=== PATIENT | female | born 1940 | race Caucasian/White ===

== ENCOUNTER 2016-05-02 07:29 | Day surgery (SDC) | payer OTHER ==
[2016-05-01 10:47] VITALS: BMI 22.6
[2016-05-02] MEDS ORDERED: LIDOCAINE HCL/PF 1% SDV 5ML VIAL ONE (08:34)
[2016-05-02] MEDS ORDERED: PROPOFOL 20 ML ONE ×3 (08:35)
[2016-05-02 10:22] VITALS: BP 123/82; PULSE 95; TEMP 98
--- NOTE | 2016-05-05 10:23 | PATH ---
Surgical Pathology Report Patient Name: SAURABH CHANG [facility]. Rec. #: [id number] /Age/Gender: 1940 (Age: 76) / F Account: [id number] Location: U-ENDOSCOPY Taken: 05/02/2016 Received: 05/02/2016 Reported: 05/05/2016 Physicians: Apollo Menon M.D. Specimen(s) Received A: BX RECTAL POLYP B: BX RT COLON POLYP C: SIGMOID POLYP Clinical History History of adenoma Diverticulosis, polyps Final Diagnosis A. RECTUM, BIOPSY: HYPERPLASTIC POLYP. B. COLON, RIGHT, BIOPSY: TUBULAR ADENOMA. C. COLON, SIGMOID, BIOPSY: HYPERPLASTIC POLYP. Electronically Signed Jacobo Oakley M.D. Gross Description A. Received in formalin, labeled "biopsy rectal polyp" is a hercules, irregular portion of soft tissue measuring 0.3 cm. in greatest dimension. The specimen is submitted in toto in one cassette. B. Received in formalin, labeled "biopsy right colon polyp" is a hercules, irregular portion of soft tissue measuring 0.2 cm. in greatest dimension. The specimen is submitted in toto in one cassette. C. Received in formalin, labeled "sigmoid polyp" is a hercules, polypoid portion of soft tissue measuring 0.4 cm. in greatest dimension. The specimen is submitted in toto in one cassette. 05/02/201605/02/2016
== END 2016-05-02 10:22 | disposition home or self-care (01) ==
LOC: JASU-ENDO 07:29
PROVIDERS: ATTEND Internal Medicine Gastroenterology
PROC: 0DBK8ZX Excision of Ascending Colon, Via Natural or Artificial Opening Endoscopic, Diagnostic (ICD-10-PCS; 2016-05-02)
PROC: 0DBP8ZX Excision of Rectum, Via Natural or Artificial Opening Endoscopic, Diagnostic (ICD-10-PCS; 2016-05-02)
PROC: 0DBN8ZX Excision of Sigmoid Colon, Via Natural or Artificial Opening Endoscopic, Diagnostic (ICD-10-PCS; principal; 2016-05-02 08:30)
DX: Z86.010 Personal history of colon polyps (principal); D12.2 Benign neoplasm of ascending colon; D12.5 Benign neoplasm of sigmoid colon; K62.1 Rectal polyp; K64.8 Other hemorrhoids
CPT/HCPCS: 88305-TC

== ENCOUNTER 2023-03-31 11:24 | Inpatient (IN) | payer OTHER ==
[2023-03-31] MEDS ORDERED: methylPREDNISolone NA SUCC 125 MG/2 ML VIAL IVPB ONE (12:17)
[2023-03-31] MEDS ORDERED: AZITHROMYCIN IVPB 500 MG in DEXTROSE 5%-WATER - 250 ML IVPB ONE (12:21)
[2023-03-31] MEDS ORDERED: ACETAMINOPHEN 1000 MG/100 ML BAG IVPB ONE (12:30)
[2023-03-31] MEDS: ALBUTEROL SO4 2.5/IPRATROPIUM 0.5 INH SOL 3 ML VIAL.NEB. NEB SCH ×3 (12:32→20:00)
[2023-03-31] MEDS ORDERED: ALBUTEROL SO4 2.5/IPRATROPIUM 0.5 INH SOL 3 ML VIAL.NEB. NEB ONE (12:36)
[2023-03-31] MEDS ORDERED: ACETAMINOPHEN INJECTION 100 ML IVPB ONE (12:36)
[2023-03-31] MEDS ORDERED: methylPREDNISolone NA SUCC 125 MG/2 ML VIAL ONE (12:36)
[2023-03-31] MEDS ORDERED: AZITHROMYCIN IVPB 500 MG/250 ML BAG IVPB ONE (12:37)
[2023-03-31 13:34] LABS: BASO % 0.6 % (0-2.0); EOS % 0.1 % (0-4.5); HEMATOCRIT 41.6 % (32.4-45.2); HEMOGLOBIN 13.5 GM/dL (10.7-15.3); LYMPH % 6.1 % (8-40); MCH 31.1 pg (25.7-33.7); MCHC 32.5 g/dl (32.0-36.0); MEAN CELL VOLUME 95.8 fl (80-96); MONO % 10.1 % (3.8-10.2); NEUT % 83.1 % (42.8-82.8); PLATELET COUNT 353 10^3/uL (134-434); RBC 4.34 M/mm3 (3.60-5.2); WHITE BLOOD COUNT 16.8 K/mm3 (4.0-10.0)
[2023-03-31 13:45] LABS: VENOUS O2 SATURATION 83.1 % (70-80); VENOUS PCO2 46.9 mmHg (38-52); VENOUS PH 7.389 (7.310-7.410)
[2023-03-31 13:49] LABS: POTASSIUM 4.4 mmol/L (3.5-5.1)
[2023-03-31 13:52] LABS: ALBUMIN 2.8 g/dl (3.4-5.0); BLOOD UREA NITROGEN 15.1 mg/dL (7-18); CALCIUM 9.2 mg/dL (8.5-10.1)
[2023-03-31 13:57] LABS: BILIRUBIN,TOTAL 0.4 mg/dL (0.2-1); CREATININE 0.5 mg/dL (0.55-1.3); TOT PROT 6.3 g/dl (6.4-8.2)
[2023-03-31] MEDS ORDERED: CEFTRIAXONE 1 GM/50 ML BAG ONE (15:04)
[2023-03-31] MEDS: methylPREDNISolone NA SUCC 40 MG/1 ML VIAL IVPB SCH (16:12)
[2023-03-31] MEDS: FLUTICASONE/UMECLIDIN/VILANTER(200-62.5-25 TRELEGY ELLIPTA) INAHLER IH SCH (16:33)
[2023-03-31] MEDS: ATORVASTATIN CA 40 MG TABLET (FP) PO SCH (21:59)
[2023-04-01] MEDS: methylPREDNISolone NA SUCC 40 MG/1 ML VIAL IVPB SCH ×2 (01:00→09:24)
[2023-04-01] MEDS ORDERED: levoFLOXacin 750 MG TABLET PO SCH (06:00)
[2023-04-01] MEDS: ALBUTEROL SO4 2.5/IPRATROPIUM 0.5 INH SOL 3 ML VIAL.NEB. NEB SCH ×4 (07:40→20:19)
[2023-04-01] MEDS: ENOXAPARIN NA (PORCINE) 40 MG/0.4 ML DISP.SYRIN SQ SCH (09:24)
[2023-04-01] MEDS: LOSARTAN POTASSIUM 50 MG TABLET PO SCH (09:25)
[2023-04-01] MEDS: CHOLECALCIFEROL (VIT D3) 1,000 UNIT (25 MCG) TABLET PO SCH (09:25)
[2023-04-01] MEDS: NIFEdipine E.R. 30 MG TABLET PO SCH (09:25)
[2023-04-01] MEDS: metoPROLOL SUCCINATE 25 MG TAB.SR.24H (FP) PO SCH (09:25)
[2023-04-01] MEDS: PANTOPRAZOLE 40 MG TABLET PO SCH (09:25)
[2023-04-01] MEDS: ASPIRIN 81 MG CHEWABLE TABLETS PO SCH (09:25)
[2023-04-01] MEDS ORDERED: PATIENT'S OWN MEDICATION (NON-FORMULARY) (Olmesartan Medoxomil 40 MG Tablet) PO SCH (10:00)
[2023-04-01] MEDS ORDERED: PATIENT'S OWN MEDICATION (NON-FORMULARY) (Vit C/E/Zn/Coppr/Lutein/Zeaxan [Preservision Are PO SCH (10:00)
[2023-04-01] MEDS ORDERED: AZITHROMYCIN IVPB 250 MG in DEXTROSE 5%-WATER - 250 ML IVPB SCH (10:00)
[2023-04-01 10:39] LABS: HEMATOCRIT 39.2 % (32.4-45.2); HEMOGLOBIN 13.2 GM/dL (10.7-15.3); MCH 31.8 pg (25.7-33.7); MCHC 33.7 g/dl (32.0-36.0); MEAN CELL VOLUME 94.4 fl (80-96); MEAN PLT VOLUME 8.9 fl (7.5-11.1); PLATELET COUNT 373 10^3/uL (134-434); RBC 4.15 M/mm3 (3.60-5.2); RDW 13.6 % (11.6-15.6); WHITE BLOOD COUNT 15.6 K/mm3 (4.0-10.0)
[2023-04-01 11:01] LABS: POTASSIUM 4.2 mmol/L (3.5-5.1)
[2023-04-01 11:08] LABS: CALCIUM 10.1 mg/dL (8.5-10.1)
[2023-04-01 11:09] LABS: ALBUMIN 2.6 g/dl (3.4-5.0); BLOOD UREA NITROGEN 19.2 mg/dL (7-18); MAGNESIUM 1.8 mg/dL (1.8-2.4)
[2023-04-01 11:11] LABS: CREATININE 0.8 mg/dL (0.55-1.3); PHOSPHOROUS 3.1 mg/dL (2.5-4.9)
[2023-04-01 11:13] LABS: BILIRUBIN,TOTAL 0.3 mg/dL (0.2-1)
[2023-04-01 11:44] LABS: ANISOCYTOSIS 0; MACROCYTOSIS 0
[2023-04-01] MEDS: FLUTICASONE/UMECLIDIN/VILANTER(200-62.5-25 TRELEGY ELLIPTA) INAHLER IH SCH (12:15)
[2023-04-01] MEDS: CYANOCOBALAMIN 1,000 MCG TABLET (FP) PO SCH (12:25)
[2023-04-01] MEDS: ATORVASTATIN CA 40 MG TABLET (FP) PO SCH (22:07)
[2023-04-02] MEDS: ALBUTEROL SO4 2.5/IPRATROPIUM 0.5 INH SOL 3 ML VIAL.NEB. NEB SCH ×4 (08:15→20:11)
[2023-04-02] MEDS ORDERED: AZITHROMYCIN IVPB 500 MG/250 ML BAG IVPB ONE (10:00)
[2023-04-02 10:08] LABS: BASO % 0.4 % (0-2.0); EOS % 0.1 % (0-4.5); HEMATOCRIT 38.9 % (32.4-45.2); HEMOGLOBIN 12.7 GM/dL (10.7-15.3); LYMPH % 8.5 % (8-40); MCH 31.7 pg (25.7-33.7); MCHC 32.8 g/dl (32.0-36.0); MEAN CELL VOLUME 96.6 fl (80-96); MONO % 9.4 % (3.8-10.2); NEUT % 81.6 % (42.8-82.8); PLATELET COUNT 387 10^3/uL (134-434); RBC 4.02 M/mm3 (3.60-5.2); RDW 13.6 % (11.6-15.6); WHITE BLOOD COUNT 17.7 K/mm3 (4.0-10.0)
[2023-04-02] MEDS: NIFEdipine E.R. 30 MG TABLET PO SCH (10:11)
[2023-04-02] MEDS: ENOXAPARIN NA (PORCINE) 40 MG/0.4 ML DISP.SYRIN SQ SCH (10:11)
[2023-04-02] MEDS: metoPROLOL SUCCINATE 25 MG TAB.SR.24H (FP) PO SCH (10:11)
[2023-04-02] MEDS: PANTOPRAZOLE 40 MG TABLET PO SCH (10:13)
[2023-04-02] MEDS: LOSARTAN POTASSIUM 50 MG TABLET PO SCH (10:13)
[2023-04-02] MEDS: predniSONE 20 MG TABLET (UD) PO SCH (10:13)
[2023-04-02] MEDS: ASPIRIN 81 MG CHEWABLE TABLETS PO SCH (10:13)
[2023-04-02] MEDS: CEFTRIAXONE 1 GM in DEXTROSE 5%-WATER - 50 ML IVPB SCH (10:14)
[2023-04-02] MEDS: CYANOCOBALAMIN 1,000 MCG TABLET (FP) PO SCH (10:15)
[2023-04-02] MEDS: FLUTICASONE/UMECLIDIN/VILANTER(200-62.5-25 TRELEGY ELLIPTA) INAHLER IH SCH (10:17)
[2023-04-02] MEDS: CHOLECALCIFEROL (VIT D3) 1,000 UNIT (25 MCG) TABLET PO SCH (10:17)
[2023-04-02 10:24] LABS: POTASSIUM 4.4 mmol/L (3.5-5.1)
[2023-04-02 10:36] LABS: BLOOD UREA NITROGEN 24.9 mg/dL (7-18)
[2023-04-02 10:37] LABS: CALCIUM 9.4 mg/dL (8.5-10.1)
[2023-04-02 10:38] LABS: ALBUMIN 2.4 g/dl (3.4-5.0)
[2023-04-02 10:39] LABS: CREATININE 0.7 mg/dL (0.55-1.3)
[2023-04-02 10:40] LABS: BILIRUBIN,TOTAL 0.2 mg/dL (0.2-1); TOT PROT 5.6 g/dl (6.4-8.2)
[2023-04-02] MEDS: ATORVASTATIN CA 40 MG TABLET (FP) PO SCH (22:00)
[2023-04-03 04:57] VITALS: RESP 18
[2023-04-03] MEDS: ALBUTEROL SO4 2.5/IPRATROPIUM 0.5 INH SOL 3 ML VIAL.NEB. NEB SCH (07:15)
[2023-04-03 08:44] LABS: BASO % 0.3 % (0-2.0); EOS % 0.5 % (0-4.5); HEMOGLOBIN 12.9 GM/dL (10.7-15.3); LYMPH % 15.7 % (8-40); MCH 31.8 pg (25.7-33.7); MCHC 33.1 g/dl (32.0-36.0); MEAN CELL VOLUME 96.2 fl (80-96); MEAN PLT VOLUME 8.6 fl (7.5-11.1); MONO % 9.8 % (3.8-10.2); NEUT % 73.7 % (42.8-82.8); PLATELET COUNT 404 10^3/uL (134-434); RBC 4.06 M/mm3 (3.60-5.2); RDW 13.1 % (11.6-15.6); WHITE BLOOD COUNT 14.1 K/mm3 (4.0-10.0)
[2023-04-03 09:00] LABS: POTASSIUM 4.7 mmol/L (3.5-5.1)
[2023-04-03 09:02] LABS: CALCIUM 9.5 mg/dL (8.5-10.1)
[2023-04-03 09:03] LABS: ALBUMIN 2.5 g/dl (3.4-5.0); BLOOD UREA NITROGEN 24.3 mg/dL (7-18)
[2023-04-03 09:06] LABS: CREATININE 0.5 mg/dL (0.55-1.3)
[2023-04-03 09:07] LABS: TOT PROT 5.6 g/dl (6.4-8.2)
[2023-04-03 09:08] LABS: BILIRUBIN,TOTAL 0.3 mg/dL (0.2-1)
[2023-04-03 09:43] VITALS: BP 111/74; PULSE 114; TEMP 97.7
[2023-04-03] MEDS ORDERED: MULTIVITAMINS THER W-MINERALS COMBO TABLET (FP) PO SCH (10:00)
[2023-04-03] MEDS: LOSARTAN POTASSIUM 50 MG TABLET PO SCH (10:18)
[2023-04-03] MEDS: predniSONE 20 MG TABLET (UD) PO SCH (10:18)
[2023-04-03] MEDS: ASPIRIN 81 MG CHEWABLE TABLETS PO SCH (10:18)
[2023-04-03] MEDS: PANTOPRAZOLE 40 MG TABLET PO SCH (10:19)
[2023-04-03] MEDS: metoPROLOL SUCCINATE 25 MG TAB.SR.24H (FP) PO SCH (10:19)
[2023-04-03] MEDS: CHOLECALCIFEROL (VIT D3) 1,000 UNIT (25 MCG) TABLET PO SCH (10:19)
[2023-04-03] MEDS: NIFEdipine E.R. 30 MG TABLET PO SCH (10:20)
[2023-04-03] MEDS: CEFTRIAXONE 1 GM in DEXTROSE 5%-WATER - 50 ML IVPB SCH (10:20)
[2023-04-03] MEDS: CYANOCOBALAMIN 1,000 MCG TABLET (FP) PO SCH (10:20)
[2023-04-03] MEDS: ENOXAPARIN NA (PORCINE) 40 MG/0.4 ML DISP.SYRIN SQ SCH (10:20)
[2023-04-03] MEDS: FLUTICASONE/UMECLIDIN/VILANTER(200-62.5-25 TRELEGY ELLIPTA) INAHLER IH SCH (10:21)
[2023-04-03 23:22] VITALS: BMI 18.5
== END 2023-04-03 11:25 | disposition home or self-care (01) | DRG 190 ==
LOC: JER 11:24 → JERBED 15:27 → J6S 17:35
PROVIDERS: ADMIT Internal Medicine; ATTEND Internal Medicine
DX: J44.1 Chronic obstructive pulmonary disease with (acute) exacerbation (principal); E43 Unspecified severe protein-calorie malnutrition; Z68.1 Body mass index [BMI] 19.9 or less, adult; D12.6 Benign neoplasm of colon, unspecified; K57.90 Diverticulosis of intestine, part unspecified, without perforation or abscess without bleeding; J06.9 Acute upper respiratory infection, unspecified; H35.30 Unspecified macular degeneration; R94.5 Abnormal results of liver function studies; I10 Essential (primary) hypertension; E78.5 Hyperlipidemia, unspecified; R50.9 Fever, unspecified; R00.0 Tachycardia, unspecified
CPT/HCPCS: 0241U-QW; 36415; 71045-TC-FY; 80053; 82803; 83735; 84100; 85025; 87040; 87070; 87205; 93005; 93010; 94640; 94761; 99291

== ENCOUNTER 2023-08-17 00:18 | Inpatient (IN) | payer OTHER ==
[2023-08-17] MEDS: ALBUTEROL SO4 0.083% IH SOL 2.5 MG/3 ML VIAL.NEB. NEB ONE (01:01)
[2023-08-17] MEDS: ALBUTEROL SO4 2.5/IPRATROPIUM 0.5 INH SOL 3 ML VIAL.NEB. NEB SCH ×2 (01:01→07:55)
[2023-08-17] MEDS ORDERED: methylPREDNISolone NA SUCC 125 MG/2 ML VIAL ONE (01:03)
[2023-08-17 01:04] LABS: VENOUS BASE EXCESS 0.8 mmol/L (-2-2); VENOUS O2 SATURATION 70.4 % (70-80); VENOUS PCO2 45.5 mmHg (38-52); VENOUS PH 7.382 (7.310-7.410)
[2023-08-17] MEDS: methylPREDNISolone NA SUCC 125 MG/2 ML VIAL IVPB ONE (01:10)
[2023-08-17 01:24] LABS: BASO % 0.8 % (0-2.0); EOS % 0.7 % (0-4.5); HEMATOCRIT 45.6 % (32.4-45.2); HEMOGLOBIN 15.4 GM/dL (10.7-15.3); LYMPH % 12.9 % (8-40); MCH 31.9 pg (25.7-33.7); MCHC 33.7 g/dl (32.0-36.0); MEAN CELL VOLUME 94.8 fl (80-96); MEAN PLT VOLUME 9.2 fl (7.5-11.1); MONO % 8.5 % (3.8-10.2); NEUT % 77.1 % (42.8-82.8); PLATELET COUNT 332 10^3/uL (134-434); RBC 4.81 M/mm3 (3.60-5.2); RDW 13.3 % (11.6-15.6); WHITE BLOOD COUNT 14.2 K/mm3 (4.0-10.0)
[2023-08-17 01:29] LABS: POTASSIUM 4.3 mmol/L (3.5-5.1)
[2023-08-17 01:31] LABS: ALBUMIN 3.4 g/dl (3.4-5.0); BLOOD UREA NITROGEN 12.6 mg/dL (7-18); CALCIUM 9.8 mg/dL (8.5-10.1)
[2023-08-17 01:34] LABS: CREATININE 0.8 mg/dL (0.55-1.3)
[2023-08-17 01:36] LABS: BILIRUBIN,TOTAL 0.4 mg/dL (0.2-1); TOT PROT 6.6 g/dl (6.4-8.2)
[2023-08-17] MEDS ORDERED: CEFTRIAXONE 1 GM/50 ML BAG ONE (02:23)
[2023-08-17 05:47] VITALS: RESP 20
[2023-08-17 09:00] LABS: HEMATOCRIT 42.1 % (32.4-45.2); HEMOGLOBIN 14.6 GM/dL (10.7-15.3); MCH 32.6 pg (25.7-33.7); MCHC 34.7 g/dl (32.0-36.0); MEAN PLT VOLUME 9.2 fl (7.5-11.1); PLATELET COUNT 335 10^3/uL (134-434); RBC 4.48 M/mm3 (3.60-5.2); RDW 13.6 % (11.6-15.6)
[2023-08-17 09:23] LABS: ALBUMIN 3.2 g/dl (3.4-5.0); BLOOD UREA NITROGEN 15.4 mg/dL (7-18); CALCIUM 9.7 mg/dL (8.5-10.1)
[2023-08-17 09:26] LABS: CREATININE 0.9 mg/dL (0.55-1.3); MAGNESIUM 2.1 mg/dL (1.8-2.4); PHOSPHOROUS 3.6 mg/dL (2.5-4.9)
[2023-08-17 09:28] LABS: BILIRUBIN,TOTAL 0.5 mg/dL (0.2-1); TOT PROT 6.4 g/dl (6.4-8.2)
[2023-08-17] MEDS: methylPREDNISolone NA SUCC 40 MG/1 ML VIAL IVPUSH SCH ×2 (09:36→17:38)
[2023-08-17] MEDS: NICOTINE 14 MG/24 HOURS TOPICAL PATCH TD SCH (09:36)
[2023-08-17] MEDS: ENOXAPARIN NA (PORCINE) 40 MG/0.4 ML DISP.SYRIN SQ SCH (09:36)
[2023-08-17] MEDS: AZITHROMYCIN IVPB 500 MG/250 ML BAG IVPB SCH (09:37)
[2023-08-17] MEDS: BUDESONIDE/FORMETEROL FUMARATE 160/4.5 mcg INHALER IH SCH (09:48)
[2023-08-17 10:13] LABS: ANISOCYTOSIS 0; MACROCYTOSIS 0
[2023-08-17] MEDS: ATORVASTATIN CA 40 MG TABLET (FP) PO SCH (21:59)
[2023-08-17] MEDS: metoPROLOL SUCCINATE 25 MG TAB.SR.24H (FP) PO ONE (22:17)
[2023-08-18 06:16] VITALS: BP 140/74; PULSE 112; TEMP 98.2
[2023-08-18 08:50] LABS: HEMATOCRIT 41.3 % (32.4-45.2); HEMOGLOBIN 13.9 GM/dL (10.7-15.3); MCH 31.6 pg (25.7-33.7); MCHC 33.6 g/dl (32.0-36.0); MEAN CELL VOLUME 93.9 fl (80-96); MEAN PLT VOLUME 9.1 fl (7.5-11.1); PLATELET COUNT 329 10^3/uL (134-434); RDW 13.8 % (11.6-15.6); WHITE BLOOD COUNT 20.7 K/mm3 (4.0-10.0)
[2023-08-18 08:55] LABS: CALCIUM 9.4 mg/dL (8.5-10.1)
[2023-08-18 08:56] LABS: ALBUMIN 2.9 g/dl (3.4-5.0); BLOOD UREA NITROGEN 15.5 mg/dL (7-18); MAGNESIUM 2.2 mg/dL (1.8-2.4)
[2023-08-18 08:59] LABS: CREATININE 0.6 mg/dL (0.55-1.3)
[2023-08-18 09:00] LABS: TOT PROT 5.8 g/dl (6.4-8.2)
[2023-08-18 09:01] LABS: BILIRUBIN,TOTAL 0.3 mg/dL (0.2-1)
[2023-08-18 09:41] LABS: PLATELET ESTIMATE ADEQUATE
[2023-08-18] MEDS: ASPIRIN 81 MG CHEWABLE TABLETS PO SCH (09:49)
[2023-08-18] MEDS: NIFEdipine E.R. 30 MG TABLET PO SCH (09:49)
[2023-08-18] MEDS: metoPROLOL SUCCINATE 25 MG TAB.SR.24H (FP) PO SCH (09:49)
[2023-08-18] MEDS: methylPREDNISolone NA SUCC 40 MG/1 ML VIAL IVPUSH SCH (09:50)
[2023-08-18] MEDS: FLUTICASONE/UMECLIDIN/VILANTER(200-62.5-25 TRELEGY ELLIPTA) INAHLER IH SCH (09:52)
[2023-08-18 10:29] VITALS: BMI 18.5
[2023-08-18] MEDS ORDERED: AZITHROMYCIN 250 MG TABLET PO SCH (10:31)
[2023-08-19] MEDS ORDERED: AZITHROMYCIN 250 MG TABLET PO SCH (10:00)
== END 2023-08-18 13:07 | disposition home health service (06) | DRG 191 ==
LOC: JER 00:18 → JERBED 03:04 → J8W 04:52
PROVIDERS: ADMIT Internal Medicine; ATTEND Nurse Practitioner Acute Care
DX: J44.1 Chronic obstructive pulmonary disease with (acute) exacerbation (principal); E44.0 Moderate protein-calorie malnutrition; Z68.1 Body mass index [BMI] 19.9 or less, adult; I10 Essential (primary) hypertension; E78.5 Hyperlipidemia, unspecified; F17.210 Nicotine dependence, cigarettes, uncomplicated; H35.30 Unspecified macular degeneration; I73.9 Peripheral vascular disease, unspecified; R00.0 Tachycardia, unspecified; Z99.81 Dependence on supplemental oxygen
CPT/HCPCS: 0241U-QW; 36415; 71045-TC-FY; 80053; 82803; 82962; 83735; 84100; 84484; 85025; 93005; 93010; 94640; 94761; 99285-25

== ENCOUNTER 2024-11-06 18:53 | Inpatient (IN) | payer OTHER ==
[2024-11-06] MEDS ORDERED: ALBUTEROL SO4 2.5/IPRATROPIUM 0.5 INH SOL 3 ML VIAL.NEB. NEB ONE (20:00)
[2024-11-06 20:05] VITALS: BMI 34.4
[2024-11-06] MEDS: ALBUTEROL SO4 2.5/IPRATROPIUM 0.5 INH SOL 3 ML VIAL.NEB. NEB SCH ×2 (20:08→21:59)
[2024-11-06 21:10] LABS: ABSOLUTE IMMATURE GRANULOCYTES 0.02 x10^3/uL (0.0-0.031); BASOPHILS # 0.05 x10^3/uL (0.01-0.08); EOSINOPHIL % 1.3 % (0.7-5.8); EOSINOPHILS # 0.12 x10^3/uL (0.04-0.36); MCHC 30.5 g/dl (32.2-35.5); MEAN CELL VOLUME 101.4 fl (79.4-94.8); MEAN PLT VOLUME 9.8 fl (9.4-12.3); MONOCYTE # 0.84 x10^3/uL (0.24-0.86); MONOCYTE % 8.8 % (4.7-12.5); RDW 13.0 % (12.5-17.0)
[2024-11-06] MEDS ORDERED: CEFTRIAXONE 1 GM/50 ML BAG ONE (21:33)
[2024-11-06] MEDS ORDERED: methylPREDNISolone NA SUCC 125 MG/2 ML VIAL ONE (21:33)
[2024-11-06] MEDS ORDERED: AZITHROMYCIN IVPB 500 MG/250 ML BAG IVPB ONE (21:34)
[2024-11-06 21:42] LABS: CO2 41.0 mmol/L (21-32); GLUCOSE,RANDOM 106.0 mg/dL (74-106)
[2024-11-06 21:44] LABS: CREATININE 0.4 mg/dL (0.55-1.3); SGOT/AST 34.0 U/L (15-37); SGPT/ALT 35.0 U/L (13-61)
[2024-11-06] MEDS: methylPREDNISolone NA SUCC 125 MG/2 ML VIAL IVPUSH ONE (21:45)
[2024-11-06 21:47] LABS: ALK PHOS 82.0 U/L (45-117); TOT PROT 6.4 g/dl (6.4-8.2)
[2024-11-06 21:50] LABS: N-TERMINAL BNP 497.8 pg/ml (5-450)
[2024-11-06] MEDS: AZITHROMYCIN IVPB 500 MG in DEXTROSE 5%-WATER - 250 ML IVPB ONE (21:58)
[2024-11-06 22:50] LABS: HCV DIAGNOSTIC IN-HOUSE W/RFLX NON-REACTIVE (NONREACTIVE); HIV INTERPRETATION NEGATIVE (NEGATIVE)
[2024-11-06] MEDS ORDERED: methylPREDNISolone NA SUCC 40 MG/1 ML VIAL IVPUSH SCH (23:45)
[2024-11-07] MEDS ORDERED: MAGNESIUM SULFATE IN WATER 2 GM/50 ML IVPB IVPB ONE (01:03)
[2024-11-07] MEDS ORDERED: FUROSEMIDE 40 MG/4 ML INJECTABLE VIAL ONE (01:03)
[2024-11-07] MEDS: MAGNESIUM SULF 50% (8.12 MEQ/2 ML-1 GM VIAL) IVPB ONE (01:09)
[2024-11-07] MEDS: FUROSEMIDE 40 MG/4 ML INJECTABLE VIAL IVPUSH ONE (01:10)
[2024-11-07 01:48] LABS: EPI CELLS 5 /uL (0-25.1); HYALINE CASTS 0 /uL (0-3.1); URINE APPEARANCE TURBID; URINE BACTERIA 104 /uL (0-1359); URINE BILIRUBIN NEGATIVE (NEGATIVE); URINE COLOR YELLOW; URINE GLUCOSE (UA) 2+ (NEGATIVE); URINE KETONE NEGATIVE (NEGATIVE); URINE LEUK ESTERASE 2+ (NEGATIVE); URINE NITRITE NEGATIVE (NEGATIVE); URINE PROTEIN NEGATIVE (NEGATIVE); URINE RBC 8 /uL (0-23.9); URINE UROBILINOGEN 0.2 mg/dL (0.2-1.0); URINE WBC 43 /uL (0-25.8)
[2024-11-07] MEDS: MELATONIN 5 MG TABLETS PO ONE (03:15)
[2024-11-07] MEDS: methylPREDNISolone NA SUCC 40 MG/1 ML VIAL IVPUSH SCH (03:15)
[2024-11-07 07:04] LABS: MCHC 30.3 g/dl (32.2-35.5); MEAN CELL VOLUME 100.3 fl (79.4-94.8); MEAN PLT VOLUME 10.9 fl (9.4-12.3); RDW 13.1 % (12.5-17.0)
[2024-11-07] MEDS: ALBUTEROL SO4 2.5/IPRATROPIUM 0.5 INH SOL 3 ML VIAL.NEB. NEB SCH (07:34)
[2024-11-07 07:39] LABS: CO2 41.0 mmol/L (21-32); GLUCOSE,RANDOM 190.0 mg/dL (74-106)
[2024-11-07 07:42] LABS: CREATININE 0.5 mg/dL (0.55-1.3); SGOT/AST 25.0 U/L (15-37); SGPT/ALT 29.0 U/L (13-61)
[2024-11-07 07:43] LABS: TOT PROT 5.6 g/dl (6.4-8.2)
[2024-11-07 07:44] LABS: ALK PHOS 74.0 U/L (45-117)
[2024-11-07] MEDS: AZITHROMYCIN 250 MG TABLET PO SCH (10:21)
[2024-11-07] MEDS: ENOXAPARIN NA (PORCINE) 40 MG/0.4 ML DISP.SYRIN SQ SCH (10:21)
[2024-11-07] MEDS: NIFEdipine E.R. 30 MG TABLET PO SCH (10:21)
[2024-11-07] MEDS: ASPIRIN 81 MG CHEWABLE TABLETS PO SCH (10:21)
[2024-11-07] MEDS: FLUTICASONE/UMECLIDIN/VILANTER(200-62.5-25 TRELEGY ELLIPTA) INAHLER IH SCH (12:35)
[2024-11-07] MEDS: ACETAMINOPHEN 325 MG TABLET (FP) PO PRN (17:01)
[2024-11-07] MEDS: ATORVASTATIN CA 40 MG TABLET (FP) PO SCH (21:42)
[2024-11-07] MEDS: MELATONIN 5 MG TABLETS PO PRN (21:42)
[2024-11-07] MEDS: LEVALBUTEROL HCL 0.63 MG/3 ML VIAL.NEB. IH PRN (21:50)
[2024-11-08 07:36] LABS: MCHC 31.2 g/dl (32.2-35.5); MEAN CELL VOLUME 99.4 fl (79.4-94.8); MEAN PLT VOLUME 10.8 fl (9.4-12.3); RDW 13.2 % (12.5-17.0)
[2024-11-08 10:31] LABS: GLUCOSE,RANDOM 154.0 mg/dL (74-106); TOT PROT 5.7 g/dl (6.4-8.2)
[2024-11-08 10:32] LABS: CO2 37.0 mmol/L (21-32)
[2024-11-08 10:34] LABS: ALK PHOS 71.0 U/L (40-150)
[2024-11-08 10:37] LABS: CREATININE 0.48 mg/dL (0.55-1.3); SGOT/AST 30.0 U/L (5-34); SGPT/ALT 26.0 U/L (0-55)
[2024-11-08] MEDS: UMECLIDINIUM/VILANTEROL (ANORO) 62.5/25 MCG INHALER IH SCH (20:27)
[2024-11-08] MEDS: methylPREDNISolone NA SUCC 40 MG/1 ML VIAL IVPUSH SCH (21:18)
[2024-11-09 08:43] LABS: MCHC 30.4 g/dl (32.2-35.5); MEAN CELL VOLUME 102.1 fl (79.4-94.8); MEAN PLT VOLUME 11.0 fl (9.4-12.3); RDW 13.2 % (12.5-17.0)
[2024-11-09 10:13] LABS: GLUCOSE,RANDOM 180.0 mg/dL (74-106)
[2024-11-09 10:14] LABS: TOT PROT 6.3 g/dl (6.4-8.2)
[2024-11-09 10:15] LABS: CO2 35.0 mmol/L (21-32)
[2024-11-09 10:16] LABS: ALK PHOS 78.0 U/L (40-150)
[2024-11-09 10:19] LABS: CREATININE 0.43 mg/dL (0.55-1.3); SGOT/AST 48.0 U/L (5-34); SGPT/ALT 51.0 U/L (0-55)
[2024-11-10 08:49] LABS: MCHC 31.4 g/dl (32.2-35.5); MEAN CELL VOLUME 99.2 fl (79.4-94.8); MEAN PLT VOLUME 10.4 fl (9.4-12.3); RDW 13.2 % (12.5-17.0)
[2024-11-10] MEDS: SODIUM CHLORIDE 1,000 ML IV SCH (09:08)
[2024-11-10 09:46] LABS: GLUCOSE,RANDOM 199.0 mg/dL (74-106)
[2024-11-10 09:47] LABS: CO2 37.0 mmol/L (21-32); TOT PROT 5.6 g/dl (6.4-8.2)
[2024-11-10 09:49] LABS: ALK PHOS 70.0 U/L (40-150)
[2024-11-10 09:52] LABS: CREATININE 0.51 mg/dL (0.55-1.3); SGOT/AST 42.0 U/L (5-34); SGPT/ALT 64.0 U/L (0-55)
[2024-11-10 11:21] VITALS: RESP 21
[2024-11-10 14:17] VITALS: BP 106/88; PULSE 114; TEMP 98.8
== END 2024-11-10 17:36 | disposition home health service (06) | DRG 191 ==
LOC: JER 18:53 → JERBED 23:05 → J6W TELE 11-07 02:42
PROVIDERS: ADMIT Hospitalist; ATTEND Internal Medicine
DX: J44.1 Chronic obstructive pulmonary disease with (acute) exacerbation (principal); E46 Unspecified protein-calorie malnutrition; I24.89 Other forms of acute ischemic heart disease; J96.11 Chronic respiratory failure with hypoxia; R91.8 Other nonspecific abnormal finding of lung field; I10 Essential (primary) hypertension; F17.210 Nicotine dependence, cigarettes, uncomplicated; E78.5 Hyperlipidemia, unspecified; Z68.34 Body mass index [BMI] 34.0-34.9, adult; Z99.81 Dependence on supplemental oxygen
CPT/HCPCS: 36415; 70491-TC; 71045-TC-FY; 71250-TC; 71260-TC; 74177-TC; 80053; 81003; 83735; 83880; 84100; 84484; 85025; 85027; 86803; 87389; 87637-QW; 93005; 93010; 93306-TC; 94640; 97116-GP; 97162-GP; 99285-25

== ENCOUNTER 2025-01-11 00:35 | Inpatient (IN) | payer OTHER ==
[2025-01-11 01:35] LABS: MCHC 30.9 g/dl (32.2-35.5); MEAN CELL VOLUME 98.9 fl (79.4-94.8); MEAN PLT VOLUME 9.8 fl (9.4-12.3); RDW 14.6 % (12.5-17.0)
[2025-01-11 01:37] LABS: BG HCT 34.0 % (32.4-45.2); VENOUS BASE EXCESS 5.7 mmol/L (-2-2); VENOUS O2 SATURATION 16.9 % (70-80); VENOUS PCO2 62.6 mmHg (38-52); VENOUS PH 7.340 (7.310-7.410)
[2025-01-11] MEDS ORDERED: MAGNESIUM SULFATE IN WATER 2 GM/50 ML IVPB IVPB ONE (01:41)
[2025-01-11] MEDS ORDERED: methylPREDNISolone NA SUCC 125 MG/2 ML VIAL ONE (01:41)
[2025-01-11] MEDS ORDERED: FUROSEMIDE 40 MG/4 ML INJECTABLE VIAL ONE (01:41)
[2025-01-11] MEDS ORDERED: dilTIAZem HCL 125 MG/25 ML - 25 ML VIAL ONE (01:41)
[2025-01-11 01:43] LABS: INR 1.05 (0.83-1.09); PROTHROMBIN TIME (PATIENT) 11.6 SEC (9.7-13.0)
[2025-01-11 01:46] LABS: ACTIVATED PTT 23.8 SECONDS (25.2-36.5)
[2025-01-11 01:57] LABS: GLUCOSE,RANDOM 145.0 mg/dL (74-106); TOT PROT 5.9 g/dl (6.4-8.2)
[2025-01-11 01:58] LABS: CO2 30.0 mmol/L (21-32)
[2025-01-11] MEDS: MAGNESIUM SULF 50% (8.12 MEQ/2 ML-1 GM VIAL) IVPB ONE (01:59)
[2025-01-11] MEDS: FUROSEMIDE 40 MG/4 ML INJECTABLE VIAL IVPUSH ONE (01:59)
[2025-01-11] MEDS: methylPREDNISolone NA SUCC 125 MG/2 ML VIAL IVPB ONE (01:59)
[2025-01-11] MEDS: dilTIAZem HCL 50 MG/10 ML - 10 ML VIAL IVPUSH ONE ×2 (02:00→03:28)
[2025-01-11 02:02] LABS: SGOT/AST 46.0 U/L (5-34); SGPT/ALT 65.0 U/L (0-55)
[2025-01-11 02:03] LABS: CREATININE 0.52 mg/dL (0.55-1.3)
[2025-01-11 02:29] LABS: ALK PHOS 117.0 U/L (40-150)
[2025-01-11] MEDS ORDERED: PIPERACILLIN/TAZOB 3.375 GM 3.375 GM/50 ML BAG IVPB ONE (02:43)
[2025-01-11] MEDS ORDERED: AZITHROMYCIN IVPB 500 MG/250 ML BAG IVPB ONE (02:43)
[2025-01-11] MEDS: VANCOMYCIN 1,000 MG in DEXTROSE 5%-WATER - 250 ML IVPB ONE (03:00)
[2025-01-11] MEDS: PIPERACILLIN/TAZOB 3.375 GM 3.375 GM in DEXTROSE 5%-WATER - 50 ML IVPB ONE (03:01)
[2025-01-11] MEDS: AZITHROMYCIN IVPB 500 MG in DEXTROSE 5%-WATER - 250 ML IVPB ONE (03:23)
[2025-01-11] MEDS ORDERED: MELATONIN 5 MG TABLETS ONE (03:58)
[2025-01-11] MEDS: MELATONIN 5 MG TABLETS PO ONE (04:07)
[2025-01-11] MEDS ORDERED: VANCOMYCIN 1 GM PREMIX (F) 1 GM/200 ML BAG ONE (04:23)
[2025-01-11 05:05] LABS: URINE APPEARANCE CLEAR; URINE BILIRUBIN NEGATIVE (NEGATIVE); URINE COLOR YELLOW; URINE GLUCOSE (UA) NEGATIVE (NEGATIVE); URINE KETONE NEGATIVE (NEGATIVE); URINE LEUK ESTERASE NEGATIVE (NEGATIVE); URINE NITRITE NEGATIVE (NEGATIVE); URINE PROTEIN TRACE (NEGATIVE); URINE UROBILINOGEN 0.2 mg/dL (0.2-1.0)
[2025-01-11] MEDS ORDERED: ALBUTEROL SO4 HFA INHALER IH PRN (05:35)
[2025-01-11 08:18] LABS: MCHC 31.6 g/dl (32.2-35.5); MEAN CELL VOLUME 96.9 fl (79.4-94.8); MEAN PLT VOLUME 11.0 fl (9.4-12.3); RDW 15.0 % (12.5-17.0)
[2025-01-11 09:30] LABS: GLUCOSE,RANDOM 213.0 mg/dL (74-106); TOT PROT 5.5 g/dl (6.4-8.2)
[2025-01-11 09:32] LABS: CO2 32.0 mmol/L (21-32)
[2025-01-11 09:36] LABS: CREATININE 0.56 mg/dL (0.55-1.3); SGOT/AST 37.0 U/L (5-34); SGPT/ALT 60.0 U/L (0-55)
[2025-01-11] MEDS: CHOLECALCIFEROL (VIT D3) 1,000 UNIT (25 MCG) TABLET PO SCH (09:49)
[2025-01-11] MEDS: APIXABAN 2.5 MG TABLET PO SCH (09:49)
[2025-01-11] MEDS: CYANOCOBALAMIN 1,000 MCG TABLET (FP) PO SCH (09:49)
[2025-01-11] MEDS: ASPIRIN 81 MG CHEWABLE TABLETS PO SCH (09:49)
[2025-01-11] MEDS: MULTIVITAMINS (DAILY MVI) TABLET (FP) PO SCH (09:49)
[2025-01-11] MEDS ORDERED: APIXABAN 5 MG TABLET PO SCH (10:00)
[2025-01-11] MEDS ORDERED: METOPROLOL TARTRATE 50 MG TABLET (FP) PO SCH (10:00)
[2025-01-11] MEDS ORDERED: UMECLIDINIUM/VILANTEROL (ANORO) 62.5/25 MCG INHALER IH SCH (10:00)
[2025-01-11] MEDS ORDERED: FUROSEMIDE 40 MG/4 ML INJECTABLE VIAL IVPUSH SCH (10:00)
[2025-01-11] MEDS ORDERED: PATIENT'S OWN MEDICATION (NON-FORMULARY) (Vit C/E/Zn/Coppr/Lutein/Zeaxan [Preservision Are PO SCH (10:00)
[2025-01-11] MEDS: METOPROLOL TARTRATE 50 MG TABLET (FP) PO SCH (10:17)
[2025-01-11 10:26] LABS: ALK PHOS 114.0 U/L (40-150)
[2025-01-11] MEDS: LEVALBUTEROL HCL 0.31 MG/3 ML VIAL.NEB IH SCH (15:00)
[2025-01-11] MEDS: DIGOXIN 0.5 MG/2 ML AMPUL IVPUSH ONE (19:42)
[2025-01-11] MEDS: MELATONIN 5 MG TABLETS PO PRN (22:04)
[2025-01-11] MEDS: ATORVASTATIN CA 40 MG TABLET (FP) PO SCH (22:04)
[2025-01-12] MEDS: DIGOXIN 0.5 MG/2 ML AMPUL IVPUSH ONE (01:56)
[2025-01-12] MEDS: ONDANSETRON *ODT* 4 MG TABLET SL PRN (07:24)
[2025-01-12 08:01] LABS: MCHC 31.0 g/dl (32.2-35.5); MEAN CELL VOLUME 97.4 fl (79.4-94.8); MEAN PLT VOLUME 10.6 fl (9.4-12.3); RDW 14.8 % (12.5-17.0)
[2025-01-12 08:42] LABS: GLUCOSE,RANDOM 114.0 mg/dL (74-106); TOT PROT 4.8 g/dl (6.4-8.2)
[2025-01-12 08:43] LABS: CO2 33.0 mmol/L (21-32)
[2025-01-12 08:47] LABS: CREATININE 0.62 mg/dL (0.55-1.3); SGOT/AST 26.0 U/L (5-34); SGPT/ALT 46.0 U/L (0-55)
[2025-01-12] MEDS: DIGOXIN 0.125 MG TABLET PO SCH (09:10)
[2025-01-12 09:20] LABS: ALK PHOS 83.0 U/L (40-150)
[2025-01-12] MEDS ORDERED: clonazePAM 0.25 MG ODT TABLETS SL ONE (22:00)
[2025-01-12] MEDS ORDERED: clonazePAM 0.25 MG ODT TABLETS SL PRN (22:00)
[2025-01-12 23:18] LABS: URINE APPEARANCE CLEAR; URINE BILIRUBIN NEGATIVE (NEGATIVE); URINE COLOR YELLOW; URINE GLUCOSE (UA) NEGATIVE (NEGATIVE); URINE KETONE NEGATIVE (NEGATIVE); URINE LEUK ESTERASE NEGATIVE (NEGATIVE); URINE NITRITE NEGATIVE (NEGATIVE); URINE PROTEIN NEGATIVE (NEGATIVE); URINE UROBILINOGEN 0.2 mg/dL (0.2-1.0)
[2025-01-13] MEDS: SODIUM CHLORIDE 500 ML IV STA (06:59)
[2025-01-13 08:05] LABS: MCHC 31.1 g/dl (32.2-35.5); MEAN CELL VOLUME 100.0 fl (79.4-94.8); MEAN PLT VOLUME 10.6 fl (9.4-12.3); RDW 14.7 % (12.5-17.0)
[2025-01-13 09:41] LABS: ALK PHOS 79.0 U/L (40-150); CO2 34.0 mmol/L (21-32); CREATININE 0.62 mg/dL (0.55-1.3); GLUCOSE,RANDOM 92.0 mg/dL (74-106); SGOT/AST 25.0 U/L (5-34); SGPT/ALT 39.0 U/L (0-55); TOT PROT 4.7 g/dl (6.4-8.2)
[2025-01-13] MEDS: DIGOXIN 0.5 MG/2 ML AMPUL IVPUSH ONE (15:27)
[2025-01-14 06:46] LABS: MCHC 30.9 g/dl (32.2-35.5); MEAN CELL VOLUME 98.3 fl (79.4-94.8); MEAN PLT VOLUME 9.9 fl (9.4-12.3); RDW 14.1 % (12.5-17.0)
[2025-01-14 07:36] LABS: GLUCOSE,RANDOM 103.0 mg/dL (74-106)
[2025-01-14 07:38] LABS: CO2 32.0 mmol/L (21-32)
[2025-01-14 07:42] LABS: CREATININE 0.5 mg/dL (0.55-1.3)
[2025-01-14] MEDS: DIGOXIN 0.25 MG TABLET PO SCH (09:49)
[2025-01-14] MEDS: METOPROLOL TARTRATE 25 MG TABLET (FP) PO SCH ×2 (09:52→21:45)
[2025-01-14] MEDS ORDERED: MAGNESIUM SULF 50% (8.12 MEQ/2 ML-1 GM VIAL) IVPB ONE (16:47)
[2025-01-14] MEDS: MAGNESIUM SULF 50% (8.12 MEQ/2 ML-1 GM VIAL) IVPB ONE (17:55)
[2025-01-14] MEDS: BISACODYL 5 MG TABLET.DR (FP) PO PRN (21:47)
[2025-01-15 07:53] LABS: MCHC 30.7 g/dl (32.2-35.5); MEAN CELL VOLUME 99.7 fl (79.4-94.8); MEAN PLT VOLUME 9.9 fl (9.4-12.3); RDW 14.3 % (12.5-17.0)
[2025-01-15 08:10] LABS: GLUCOSE,RANDOM 121.0 mg/dL (74-106)
[2025-01-15 08:12] LABS: CO2 35.0 mmol/L (21-32)
[2025-01-15 08:17] LABS: CREATININE 0.61 mg/dL (0.55-1.3)
[2025-01-15] MEDS: POLYETHYLENE GLYCOL (HEALTHYLAX) 3350 17 GM PACKET PO PRN (09:09)
[2025-01-15] MEDS: METOPROLOL TARTRATE 25 MG TABLET (FP) PO ONE ×2 (10:08→10:27)
[2025-01-15] MEDS: FUROSEMIDE 20 MG TABLET (FP) PO ONE (16:16)
[2025-01-15] MEDS: METOPROLOL TARTRATE 25 MG TABLET (FP) PO SCH (21:26)
[2025-01-16 08:12] LABS: MCHC 31.4 g/dl (32.2-35.5); MEAN CELL VOLUME 99.4 fl (79.4-94.8); MEAN PLT VOLUME 10.0 fl (9.4-12.3); RDW 14.6 % (12.5-17.0)
[2025-01-16 08:28] LABS: GLUCOSE,RANDOM 107.0 mg/dL (74-106)
[2025-01-16 08:29] LABS: CO2 36.0 mmol/L (21-32)
[2025-01-16 08:34] LABS: CREATININE 0.54 mg/dL (0.55-1.3)
[2025-01-16 17:13] VITALS: BMI 20.2
[2025-01-16] MEDS: LEVALBUTEROL HCL 0.31 MG/3 ML VIAL.NEB IH SCH (20:42)
[2025-01-17 09:17] LABS: ABSOLUTE IMMATURE GRANULOCYTES 0.06 x10^3/uL (0.0-0.031); BASOPHILS # 0.02 x10^3/uL (0.01-0.08); EOSINOPHIL % 1.0 % (0.7-5.8); EOSINOPHILS # 0.14 x10^3/uL (0.04-0.36); MCHC 31.7 g/dl (32.2-35.5); MEAN CELL VOLUME 97.2 fl (79.4-94.8); MEAN PLT VOLUME 10.3 fl (9.4-12.3); MONOCYTE # 0.78 x10^3/uL (0.24-0.86); MONOCYTE % 5.3 % (4.7-12.5); RDW 14.3 % (12.5-17.0)
[2025-01-17 09:55] LABS: GLUCOSE,RANDOM 150.0 mg/dL (74-106); TOT PROT 5.3 g/dl (6.4-8.2)
[2025-01-17 09:56] LABS: CO2 34.0 mmol/L (21-32)
[2025-01-17 09:58] LABS: ALK PHOS 74.0 U/L (40-150)
[2025-01-17 10:01] LABS: CREATININE 0.48 mg/dL (0.55-1.3); SGOT/AST 29.0 U/L (5-34); SGPT/ALT 28.0 U/L (0-55)
[2025-01-17] MEDS: FUROSEMIDE 20 MG TABLET (FP) PO SCH (11:32)
[2025-01-17] MEDS: METOPROLOL TARTRATE 25 MG TABLET (FP) PO SCH (13:30)
[2025-01-18 07:47] LABS: MCHC 31.1 g/dl (32.2-35.5); MEAN CELL VOLUME 97.5 fl (79.4-94.8); MEAN PLT VOLUME 10.1 fl (9.4-12.3); RDW 14.2 % (12.5-17.0)
[2025-01-18 08:20] LABS: GLUCOSE,RANDOM 105.0 mg/dL (74-106)
[2025-01-18 08:21] LABS: TOT PROT 4.7 g/dl (6.4-8.2)
[2025-01-18 08:22] LABS: CO2 36.0 mmol/L (21-32)
[2025-01-18 08:23] LABS: ALK PHOS 64.0 U/L (40-150)
[2025-01-18 08:26] LABS: CREATININE 0.47 mg/dL (0.55-1.3); SGOT/AST 28.0 U/L (5-34); SGPT/ALT 27.0 U/L (0-55)
[2025-01-18] MEDS: LACTOBACILLUS ACIDOPHILUS 1 TABLET PO SCH (10:28)
[2025-01-18] MEDS ORDERED: DIGOXIN 0.25 MG TABLET PO SCH (12:44)
[2025-01-19 07:33] LABS: MCHC 31.8 g/dl (32.2-35.5); MEAN CELL VOLUME 97.9 fl (79.4-94.8); MEAN PLT VOLUME 10.0 fl (9.4-12.3); RDW 13.9 % (12.5-17.0)
[2025-01-19 07:54] LABS: GLUCOSE,RANDOM 105.0 mg/dL (74-106); TOT PROT 4.8 g/dl (6.4-8.2)
[2025-01-19 07:55] LABS: CO2 35.0 mmol/L (21-32)
[2025-01-19 07:57] LABS: ALK PHOS 65.0 U/L (40-150)
[2025-01-19 07:59] LABS: SGOT/AST 28.0 U/L (5-34); SGPT/ALT 27.0 U/L (0-55)
[2025-01-19 08:00] LABS: CREATININE 0.43 mg/dL (0.55-1.3)
[2025-01-19] MEDS: MAGNESIUM SULFATE IN WATER 2 GM/50 ML IVPB IVPB ONE (09:23)
[2025-01-19] MEDS: methylPREDNISolone NA SUCC 40 MG/1 ML VIAL IVPUSH ONE (10:49)
[2025-01-19] MEDS: DIGOXIN 0.125 MG TABLET PO SCH (13:39)
[2025-01-20 08:08] LABS: MCHC 30.2 g/dl (32.2-35.5); MEAN CELL VOLUME 99.7 fl (79.4-94.8); MEAN PLT VOLUME 10.5 fl (9.4-12.3); RDW 13.8 % (12.5-17.0)
[2025-01-20 08:42] LABS: GLUCOSE,RANDOM 103.0 mg/dL (74-106)
[2025-01-20 08:43] LABS: TOT PROT 4.7 g/dl (6.4-8.2)
[2025-01-20 08:44] LABS: CO2 36.0 mmol/L (21-32)
[2025-01-20 08:45] LABS: ALK PHOS 61.0 U/L (40-150)
[2025-01-20 08:48] LABS: CREATININE 0.47 mg/dL (0.55-1.3); SGOT/AST 20.0 U/L (5-34); SGPT/ALT 23.0 U/L (0-55)
[2025-01-20] MEDS: predniSONE 20 MG TABLET (UD) PO ONE (11:33)
[2025-01-20 18:19] VITALS: BP 142/79; PULSE 108; RESP 18; TEMP 97.5
== END 2025-01-20 18:32 | DRG 309 ==
LOC: JER 00:35 → JERBED 03:28 → J4S 05:34
PROVIDERS: ADMIT Hospitalist; ATTEND Internal Medicine
DX: I48.91 Unspecified atrial fibrillation (principal); I24.89 Other forms of acute ischemic heart disease; J96.12 Chronic respiratory failure with hypercapnia; J96.11 Chronic respiratory failure with hypoxia; J44.1 Chronic obstructive pulmonary disease with (acute) exacerbation; I50.32 Chronic diastolic (congestive) heart failure; R64 Cachexia; Z68.1 Body mass index [BMI] 19.9 or less, adult; I11.0 Hypertensive heart disease with heart failure; E78.5 Hyperlipidemia, unspecified; D72.829 Elevated white blood cell count, unspecified; R19.7 Diarrhea, unspecified
CPT/HCPCS: 36415; 71045-TC-FY; 71275-TC; 76604; 80048; 80053; 80162; 81003; 82803; 83605; 83735; 83880; 84100; 84436; 84439; 84443; 84479; 84484; 85025; 85027; 85610; 85651; 85730; 87040; 87086; 87637-QW; 93005; 93010; 93306-TC; 93308; 94010; 97116-GP; 97161-GP; 99285-25; Q0162; Q9967